=== PATIENT | male | born 1950 | race Caucasian/White ===

== ENCOUNTER 2022-04-27 07:07 | Outpatient (CLI) | payer OTHER, SELFPAY ==
--- NOTE | 2022-04-27 | USCV_ITS ---
Simón Marti Age: 71 Gender: M : 1950 Exam Date: 04/27/2022 07:33 Ordering Phys: Yolette Fall MD Technologist: Osei Akins [place] [facility] [place] AAA screening HISTORY: Diameter (cm) AP x Transverse x Length Velocity (cm/s) Waveform Prox Aorta: 2.68 x 2.83 x 76.80 Mid Aorta: 2.02 x 1.94 x 65.10 Distal Aorta: 1.71 x 1.88 x 52.50 Right Iliac Prox: 1.03 x 1.33 x 90.90 Left Iliac Prox: 1.58 x 1.22 x 114.90 Stent Prox Landing x x Aneurysmal Sac Max x x Lt Lat Sac Dim Rt Lat Sac Dim Stent Dist Landing x x Right Iliac Stent x x Left Iliac Stent x x Right Renal Art Left Renal Art FINDINGS: Comparison: none available. Ectatic abdominal aorta with evidence of minimal atherosclerotic plaque noted. Normal Doppler flow velocites noted throught the aorta and common iliac arteries. CONCLUSIONS No evidence of abdominal aortic or bilateral iliac aneurysm. Dr. Kathryn Kenny DO (Electronically Signed) Final Date: 27 April 2022 08:28 S
== END 2022-04-27 07:08 | disposition home or self-care (01) ==
PROVIDERS: PCP Family Medicine; Visit Provider Family Medicine
DX: Z13.89 Encounter for screening for other disorder (principal)
CPT/HCPCS: 76706